=== PATIENT | female | born 1940 | race Caucasian/White ===

== ENCOUNTER → 2018-04-10 | Outpatient (CLI) | payer MEDICARE, BC ==
[~2018-04-10] MED LIST: DOBUTamine DRIP for NUC MED 500 MG in DEXTROSE/WATER 1 250ML.BAG IV ONE
--- NOTE | 2018-04-11 14:43 | ECHOS ---
STRESS ECHOCARDIOGRAM DATE OF SERVICE: 04/10/2018 INDICATIONS: Abnormal EKG. MEDICATIONS: BASELINE HEART RATE: 87 BASELINE BLOOD PRESSURE: 175/74 MAXIMUM HEART RATE: 135 MAXIMUM BLOOD PRESSURE: 134/49 85% MPHR: 123 100% MPHR: 145 METS: @@ MAXIMUM STAGE REACHED: 2 TOTAL EXERCISE TIME: 5:00 CLINICAL INFORMATION: Baseline rhythm is sinus mechanism, rate of 87, intraventricular conduction delay, poor R wave progression with left axis deviation. Baseline blood pressure 175/74. Patient received an infusion of dobutamine per protocol. Peak rate 135 beats per minute, which is equal to 93% maximum predicted heart rate. Peak blood pressure 134/49 mmHg. Electrocardiographic monitoring revealed no evidence of diagnostic ischemic ST deviation. FINDINGS: Baseline echocardiogram revealed normal wall thickening and motion. At peak exercise, there was normal wall motion augmentation with no hypokinesis or dyskinesis. CONCLUSION: 1. Non-diagnostic electrocardiographic response to dobutamine infusion Secondary to baseline EKG abnormality. 2. Normal stress echocardiogram with no evidence of stress-induced ischemia. MMODL / IJN: [id number] /
== END | disposition home or self-care (01) ==
LOC: RADNMMAIN 09:49
PROVIDERS: ATTEND Internal Medicine
DX: R94.31 Abnormal electrocardiogram [ECG] [EKG] (principal)
CPT/HCPCS: 93351; J1250

== ENCOUNTER → 2018-05-14 | Outpatient (CLI) | payer MEDICARE, BC ==
--- NOTE | 2018-05-14 12:59 | MM ---
Reason for exam: screening (asymptomatic). Last mammogram was performed 7 years and 1 month ago. History: Patient is postmenopausal. Family history of breast cancer in paternal grandmother and breast cancer in paternal aunt. Benign excisional biopsy of the right breast, 2003. Took estrogen for 6 months beginning at age 54. Physical Findings: A clinical breast exam by your physician is recommended on an annual basis and results should be correlated with mammographic findings. MG 3D Screening Mammo W/Cad Bilateral CC and MLO view(s) were taken. Prior study comparison: April 03, 2011, bilateral digital screening mammo w/CAD. March 10, 2010, bilateral diagnostic digital mammog. The breast tissue is heterogeneously dense. This may lower the sensitivity of mammography. Finding: There are typically benign vascular, round, skin calcifications in both breasts. There is no discrete abnormality. ASSESSMENT: Benign, BI-RAD 2 RECOMMENDATION: Routine screening mammogram of both breasts in 1 year.
--- NOTE | 2018-05-14 14:06 | BD ---
EXAMINATION TYPE: Axial Bone Density DATE OF EXAM: 05/14/2018 COMPARISON: NONE CLINICAL HISTORY: Height: 60.5 IN Weight: 136 LBS RISK FACTORS HISTORY OF: History of Wrist Fracture: YES RT WRIST When: AGE 30 Surgery to Spine: YES L-SPINE FUSION When: 2002 Active: YES Diet low in dairy products/other sources of calcium: YES Postmenopausal woman: AGE 52 MEDICATIONS: Thyroid Medications: YES Which medication: Levothyroxine How Lon + YEARS Additional Medications: LEVOTHYROXINE, JANUMET, AMLODIPINE, PANTOPRAZOLE SODIUM, CARVEDILOL, CLOPIDOG REL,AMITRIPTYLINE,VALSARTAN, ASPIRIN, PRESERVISION, EXAM MEASUREMENTS: Bone mineral densitometry was performed using the [employer] System. PT HAD L SPINE FUSION 2002 Bone mineral density about the R hip (g/cm2): 0.679 Bone mineral density about the L hip (g/cm2): 0.691 T Score values are as follows: -----R Neck: -2.6 -----L Neck: -2.5 -----R Total: -2.4 -----L Total: -2.4 Bone mineral density has: Decreased -3.5% since study of: 01/15/2009 Bone mineral density about the L Wrist (g/cm2): 0.406 T Score values are as follows: -----Dist. R+U: -4.6 -----Prox. R+U: -3.1 -----Radius total: -4.4 Bone mineral density BASELINE IMPRESSION: Osteoporosis (T Score less than -2.5). There is increased fracture risk and therapy is usually indicated based on age. Re-Screen 1-2 years. NOTE: T-SCORE=SD OF THE YOUNG ADULT MEAN.
== END | disposition home or self-care (01) ==
LOC: RADMAMWWP 08:05
PROVIDERS: ATTEND Internal Medicine Geriatric Medicine
DX: Z12.31 Encounter for screening mammogram for malignant neoplasm of breast (principal); M81.0 Age-related osteoporosis without current pathological fracture
CPT/HCPCS: 77063; 77067; 77080

== ENCOUNTER 2018-12-16 12:14 | Emergency (ER) | payer MEDICARE, BC ==
[2018-12-16] MEDS ORDERED: RX INFO: IV CONTRAST WAS GIVEN 1 EACH MISC MISCELLANE PRN (12:30)
[2018-12-16 12:39] LABS: Basophils % (A) 0 %; Eosinophils # (A) 0.4 k/uL (0-0.7); Eosinophils % (A) 5 %; HCT 33.2 % (34.0-46.0); HGB 10.9 gm/dL (11.4-16.0); Lymphocytes # (A) 2.8 k/uL (1.0-4.8); Lymphocytes % (A) 35 %; MCH 26.8 pg (25.0-35.0); MCV 81.2 fL (80.0-100.0); Mean Platelet Volume 8.4; Monocytes # (A) 0.3 k/uL (0-1.0); Monocytes % (A) 3 %; Neutrophils # (A) 4.3 k/uL (1.3-7.7); Neutrophils % (A) 53 %; Platelet Count 173 k/uL (150-450); RBC 4.09 m/uL (3.80-5.40); RDW 14.7 % (11.5-15.5); WBC 8.1 k/uL (3.8-10.6)
[2018-12-16] MEDS ORDERED: ETOMIDATE 2 MG/ML 10 ML VIAL IVP STA (12:43)
[2018-12-16] MEDS ORDERED: ROCURONIUM BROMIDE 10 MG/ML 10 ML VIAL IV STA (12:43)
[2018-12-16 12:55] LABS: Albumin 4.5 g/dL (3.5-5.0); Calcium 9.5 mg/dL (8.4-10.2); Potassium 4.5 mmol/L (3.5-5.1); Total Bilirubin 0.7 mg/dL (0.2-1.3); Total Protein 6.7 g/dL (6.3-8.2)
[2018-12-16 12:58] LABS: Glucose,Whole Blood 224 mg/dL (75-99)
[2018-12-16 12:59] LABS: Prothrombin Time 10.5 sec (9.0-12.0)
--- NOTE | 2018-12-16 13:04 | ED ---
Altered Mental Status HPI - General Chief Complaint: Altered Mental Status Stated Complaint: Altered Mental Status Time Seen by Provider: 12/16/18 12:26 Source: family, EMS Mode of arrival: EMS Limitations: altered mental status - History of Present Illness Initial Comments: The patient is a 78-year-old female who presents to the emergency room via EMS for altered mental status. EMS and the daughter provide the history. The patient had an upper endoscopy today. The daughter states that the exam went well and the patient fully recovered after anesthesia. They were out eating lunch. Patient had sudden onset of headache, neck pain and upper back pain at 1145. Patient stated that she wanted to go home so the daughter assisted her out of the restaurant. The patient could not ambulate on her own and then became unresponsive. EMS was called. Patient arrived with snoring respirations. She had 3 episodes of vomiting. The patient would withdraw from pain in her lower extremities however would not withdrawal with her upper extremities. Pupils are unequal. Patient does not follow any commands. Remainder of the HPI is limited due to patient's unresponsive state. - Related Data Allergies Allergy/AdvReac Type Severity Reaction Status Date / Time No Known Allergies Allergy Verified 12/16/18 12:32 Review of Systems ROS Statement: Those systems with pertinent positive or pertinent negative responses have been documented in the HPI. ROS Other: All systems not noted in ROS Statement are negative. Limitations: ROS unobtainable due to patients medical condition Neurological: Reports: headache, confusion, other (Neck pain, inability to ambulate, speech difficulties) Past Medical History Past Medical History: Unable to Obtain, CVA/TIA, Diabetes Mellitus, Hypertension Past Surgical History: Unable to Obtain, Back Surgery Past Psychological History: No Psychological Hx Reported Smoking Status: Unknown if ever smoked General Exam Limitations: altered mental status General appearance: obtunded Head exam: Present: atraumatic, normocephalic Eye exam: Present: other (The left pupil is 3 mm and minimally reactive. The right pupil is 4 mm and minimally reactive) Pupils: Present: unequal ENT exam: Present: normal exam, mucous membranes moist, other (There is vomitus in the posterior pharynx) Neck exam: Present: normal inspection Respiratory exam: Present: other (The patient has snoring, agonal respirations) Cardiovascular Exam: Present: regular rate, normal heart sounds GI/Abdominal exam: Present: soft. Absent: distended, tenderness, guarding, rebound, rigid Back exam: Present: normal inspection Neurological exam: Present: other (The patient is obtunded. She does not follow any commands. She will withdraw from pain in her bilateral lower extremities. Does not withdrawal to pain in her upper extremities. No spontaneous movements.) Skin exam: Present: warm, dry Course Vital Signs 12/16/18 12/16/18 12/16/18 12:23 12:25 12:40 Temperature 98 F Pulse Rate 112 H 110 H 65 Respiratory 10 L 8 L 15 Rate Blood Pressure 116/82 115/80 110/70 O2 Sat by Pulse 95 95 99 Oximetry 12/16/18 12/16/18 12/16/18 12:55 13:30 13:37 Temperature 97.9 F Pulse Rate 71 62 66 Respiratory 15 14 16 Rate Blood Pressure 120/78 104/62 125/85 O2 Sat by Pulse 99 100 100 Oximetry Procedures - Intubation Sedative: Etomidate Mg Given: 20 Paralytic: Rocuronium Mg Given: 100 Laryngoscope: other ([place] scope) Size: 3 ET Tube Size: 8 ET Tube Uncuffed: No Tube Secured Depth (cm): 23 Tube Secured Location: lips Tube Placement Confirmation: visualized tube passing through cords, equal breath sounds bilaterally, no breath sounds over epigastrium, confirmation by capnometry Patient Tolerated Procedure: no complications Intubation Complications: none Medical Decision Making - Medical Decision Making The patient was immediately brought into trauma bay 1. Initial assessment demonstrates agonal respirations. The patient was not protecting her airway and therefore decision was made to intubate the patient. She was intubated using the glide scope and an 8 cm ET tube. Tube was visualized going through the cords. It was secured at 23 cm at the lips. The patient had bilateral breath sounds auscultated and there was color change on the capnography. The patient's blood pressure was normotensive however due to reported hypertension reported by EMS, sudden onset of headache and altered mental status, I was concerned for a subarachnoid hemorrhage. Patient was immediately sent for a CT brain/CT angio of her head and a code stroke was activated at 1234. Review of the imaging reveals large intraventricular blood with obstructive hydrocephalus. Dr. Whitten did return my call at 1:10 PM. He recommended a Keppra, platelets, blood pressure control less than 160 systolic [facility] I called and discussed the case with Dr. Aly at 1:18 who did accept transfer. EMS was called and COBRA forms were initiated. 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 The patient did receive Keppra 1 gram. Her blood pressure remained stable around 120 systolic therefore cardene was not initiated. The pharmacy is unable to provide platelets for an additional 3 hours. The patient will be sent prior to and sirens to [facility]. I did call Dr. Aly and update her that the platelets were not transfused. [facility] - Lab Data Result diagrams: 12/16/18 12:25 12/16/18 12:25 Lab Results 12/16/18 12/16/18 12/16/18 Range/Units 12:25 12:25 12:25 WBC 8.1 (3.8-10.6) k/uL RBC 4.09 (3.80-5.40) m/uL Hgb 10.9 L (11.4-16.0) gm/dL Hct 33.2 L (34.0-46.0) % MCV 81.2 (80.0-100.0) fL MCH 26.8 (25.0-35.0) pg MCHC 33.0 (31.0-37.0) g/dL RDW 14.7 (11.5-15.5) % Plt Count 173 (150-450) k/uL Neutrophils % 53 % Lymphocytes % 35 % Monocytes % 3 % Eosinophils % 5 % Basophils % 0 % Neutrophils # 4.3 (1.3-7.7) k/uL Lymphocytes # 2.8 (1.0-4.8) k/uL Monocytes # 0.3 (0-1.0) k/uL Eosinophils # 0.4 (0-0.7) k/uL Basophils # 0.0 (0-0.2) k/uL PT (9.0-12.0) sec INR (<1.2) APTT (22.0-30.0) sec Sample Site ABG pH (7.35-7.45) ABG pCO2 (35-45) mmHg ABG pO2 (83-108) mmHg ABG HCO3 (21-25) mmol/L ABG Total CO2 (19-24) mmol/L ABG O2 Saturation (94-97) % ABG Base Excess mmol/L Lazaro Test FiO2 % Sodium 136 L (137-145) mmol/L Potassium 4.5 (3.5-5.1) mmol/L Chloride 97 L (98-107) mmol/L Carbon Dioxide 23 (22-30) mmol/L Anion Gap 16 mmol/L BUN 17 (7-17) mg/dL Creatinine 0.83 (0.52-1.04) mg/dL Est GFR (CKD-EPI)AfAm 80 (>60 ml/min/1.73 sqM) Est GFR (CKD-EPI)NonAf 69 (>60 ml/min/1.73 sqM) Glucose 231 H (74-99) mg/dL POC Glucose (mg/dL) (75-99) mg/dL POC Glu Breaker Layer ID Calcium 9.5 (8.4-10.2) mg/dL Total Bilirubin 0.7 (0.2-1.3) mg/dL AST 27 (14-36) U/L ALT 21 (9-52) U/L Alkaline Phosphatase 53 (38-126) U/L Ammonia <9 (<30) umol/L Troponin I (0.000-0.034) ng/mL Total Protein 6.7 (6.3-8.2) g/dL Albumin 4.5 (3.5-5.0) g/dL Blood Type Blood Type Recheck Antibody Screen Spec Expiration Date 12/16/18 12/16/18 12/16/18 Range/Units 12:25 12:25 12:25 WBC (3.8-10.6) k/uL RBC (3.80-5.40) m/uL Hgb (11.4-16.0) gm/dL Hct (34.0-46.0) % MCV (80.0-100.0) fL MCH (25.0-35.0) pg MCHC (31.0-37.0) g/dL RDW (11.5-15.5) % Plt Count (150-450) k/uL Neutrophils % % Lymphocytes % % Monocytes % % Eosinophils % % Basophils % % Neutrophils # (1.3-7.7) k/uL Lymphocytes # (1.0-4.8) k/uL Monocytes # (0-1.0) k/uL Eosinophils # (0-0.7) k/uL Basophils # (0-0.2) k/uL PT 10.5 (9.0-12.0) sec INR 1.0 (<1.2) APTT 21.6 L (22.0-30.0) sec Sample Site ABG pH (7.35-7.45) ABG pCO2 (35-45) mmHg ABG pO2 (83-108) mmHg ABG HCO3 (21-25) mmol/L ABG Total CO2 (19-24) mmol/L ABG O2 Saturation (94-97) % ABG Base Excess mmol/L Lazaro Test FiO2 % Sodium (137-145) mmol/L Potassium (3.5-5.1) mmol/L Chloride (98-107) mmol/L Carbon Dioxide (22-30) mmol/L Anion Gap mmol/L BUN (7-17) mg/dL Creatinine (0.52-1.04) mg/dL Est GFR (CKD-EPI)AfAm (>60 ml/min/1.73 sqM) Est GFR (CKD-EPI)NonAf (>60 ml/min/1.73 sqM) Glucose (74-99) mg/dL POC Glucose (mg/dL) (75-99) mg/dL POC Glu Breaker Layer ID Calcium (8.4-10.2) mg/dL Total Bilirubin (0.2-1.3) mg/dL AST (14-36) U/L ALT (9-52) U/L Alkaline Phosphatase (38-126) U/L Ammonia (<30) umol/L Troponin I <0.012 (0.000-0.034) ng/mL Total Protein (6.3-8.2) g/dL Albumin (3.5-5.0) g/dL Blood Type O Positive Blood Type Recheck CABO Indicated Antibody Screen NEGATIVE Spec Expiration Date 12/16/2018 - 132412/16/18 12/16/18 Range/Units 12:57 13:15 WBC (3.8-10.6) k/uL RBC (3.80-5.40) m/uL Hgb (11.4-16.0) gm/dL Hct (34.0-46.0) % MCV (80.0-100.0) fL MCH (25.0-35.0) pg MCHC (31.0-37.0) g/dL RDW (11.5-15.5) % Plt Count (150-450) k/uL Neutrophils % % Lymphocytes % % Monocytes % % Eosinophils % % Basophils % % Neutrophils # (1.3-7.7) k/uL Lymphocytes # (1.0-4.8) k/uL Monocytes # (0-1.0) k/uL Eosinophils # (0-0.7) k/uL Basophils # (0-0.2) k/uL PT (9.0-12.0) sec INR (<1.2) APTT (22.0-30.0) sec Sample Site rbrac ABG pH 7.38 (7.35-7.45) ABG pCO2 44 (35-45) mmHg ABG pO2 48 L* (83-108) mmHg ABG HCO3 26 H (21-25) mmol/L ABG Total CO2 27 H (19-24) mmol/L ABG O2 Saturation 83.0 L (94-97) % ABG Base Excess 0.4 mmol/L Lazaro Test Yes FiO2 100 % Sodium (137-145) mmol/L Potassium (3.5-5.1) mmol/L Chloride (98-107) mmol/L Carbon Dioxide (22-30) mmol/L Anion Gap mmol/L BUN (7-17) mg/dL Creatinine (0.52-1.04) mg/dL Est GFR (CKD-EPI)AfAm (>60 ml/min/1.73 sqM) Est GFR (CKD-EPI)NonAf (>60 ml/min/1.73 sqM) Glucose (74-99) mg/dL POC Glucose (mg/dL) 224 H (75-99) mg/dL POC Glu Breaker Layer ID [place]elles Calcium (8.4-10.2) mg/dL Total Bilirubin (0.2-1.3) mg/dL AST (14-36) U/L ALT (9-52) U/L Alkaline Phosphatase (38-126) U/L Ammonia (<30) umol/L Troponin I (0.000-0.034) ng/mL Total Protein (6.3-8.2) g/dL Albumin (3.5-5.0) g/dL Blood Type Blood Type Recheck Antibody Screen Spec Expiration Date - EKG Data EKG Comments: EKG demonstrates a sinus tachycardia with ventricular rate of 103. MO interval 198. QRS 104. QTC 482. No acute ST segment elevations. There is mild depression in leads 1, aVL, V5 through V6. - Radiology Data Radiology results: report reviewed, image reviewed Critical Care Time Critical Care Time: Yes Total Critical Care Time: 65 Disposition Clinical Impression: Altered mental status, Subarachnoid hemorrhage, Cerebral aneurysm Disposition: OTHER INSTITUTION NOT DEFINED Condition: Critical Is patient prescribed a controlled substance at d/c from ED?: No Referrals: Tory Forman DO [Primary Care Provider] - 1-2 days - Out of Hospital Transfer - Req. Specs Out of Hospital Transfer - Requested Specifics: Intensive Care Unit
[2018-12-16] MEDS ORDERED: levETIRAcetam IV 1,000 MG in SALINE 1 100ML.BAG IVPB STA (13:14)
[2018-12-16] MEDS ORDERED: niCARdipine 20 MG in SODIUM CHLORIDE 0.9% 192 ML IV SCH (13:15)
--- NOTE | 2018-12-16 13:16 | CT ---
EXAMINATION TYPE: CT brain wo con DATE OF EXAM: 12/16/2018 COMPARISON: None HISTORY: 78-year-old female unresponsive, severe headache, Altered mentaL status TECHNIQUE: Examination was done in axial plane without intravenous contrast. Coronal and sagittal r econstructions performed. CT DLP: 1004.8 mGycm Automated exposure control for dose reduction was used. FINDINGS: Large amount of acute intracranial hemorrhage located throughout the ventricular system filling the b ilateral lateral ventricles, third ventricle, coursing along the cerebral aqueduct in filling the fou rth ventricle as well and within the subarachnoid space to the visualized upper cervical region. There is associated mild hydrocephalus. Moderate confluent white matter hypodensities in both cerebral hemispheres. No midline shift or dagmar herniation is seen at this time. Leftward nasal septal deviation. Partial opacification of the bilateral mastoid air cells. Orbits and globes are intact. IMPRESSION: 1. Large amount of acute intraventricular hemorrhage seen throughout with early obstructive hydroceph alus. No dagmar herniation or midline shift at this time. 2. Moderate confluent changes of chronic small vessel ischemic disease. 3. Some trapped fluid in the bilateral mastoid air cells. Correlate for any mastoid pain to exclude m astoiditis. Critical findings called to Dr. Almodovar in the ER at 1:13 PM.
[2018-12-16 13:17] LABS: Partial Thromboplastin Time 21.6 sec (22.0-30.0)
[2018-12-16 13:27] LABS: ABG Base Excess 0.4 mmol/L; ABG HCO3 26 mmol/L (21-25); ABG PCO2 44 mmHg (35-45); ABG PH 7.38 (7.35-7.45); ABG TCO2 27 mmol/L (19-24); Allen Test Performed? Yes
--- NOTE | 2018-12-16 13:31 | CT ---
EXAMINATION TYPE: CT angio head neck DATE OF EXAM: 12/16/2018 COMPARISON: Noncontrast head same day. Also, old CT chest from 09/25/2011. HISTORY: 78-year-old female with headache now unresponsive TECHNIQUE: Contiguous axial scanning of the head and neck performed with IV Contrast, patient injecte d with 150 mL of Isovue 370. Coronal/sagittal MIP reconstructions performed. Reconstructions generate d on a dedicated independent workstation. CT DLP: mGycm Automated exposure control for dose reduction was used. FINDINGS: Neck: Patient is intubated. Moderate emphysema. Spiculated density right upper lobe measures 1.0 cm versus 7 mm on 2012. Moderate atherosclerotic calcifications aortic arch. There appears to be variant direct takeoff of th e left vertebral artery directly from the aortic arch distal to the left subclavian artery. There is the left subclavian artery at its origin with reconstitution just prior to the axillary santi ry. Scattered mild atherosclerotic calcifications within the left common carotid artery with postsurgical changes at the left carotid bifurcation. The left ICA remains patent. There is severe atherosclerotic narrowing involving the brachiocephalic artery. Right common carotid artery is patent. There is occlusion of the right ICA. Also, suspect chronic occlusion of the right vertebral artery. Head: The V4 segment left vertebral artery becomes diminutive. Basilar artery is also relatively diminutive . Distal V4 segment right vertebral artery shows some reconstitution probably from retrograde flow. ICA occlusion on the right. There is reconstitution of the right MCA and right RENATE circulations in part due to prominent posterio r communicating arteries. A 5 segment RENATE shows a 5 mm nodular focus of enhancement along the body of the corpus callosum, refe r to sagittal series 507 image 14. This may be the source of the intraventricular hemorrhage. No othe r definite aneurysmal changes identified. IMPRESSION: NECK: 1. 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 2. 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 3. Variant anatomy with direct takeoff of the left vertebral artery from the aortic arch distal to th e left subclavian artery takeoff. 4. 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 HEAD: 1. Right ICA occlusion with reconstitution of the right RENATE and MCA circulation likely from prominent communicating arteries. 2. A 5 mm nodular focus of enhancement just inferior to A5 segment anterior cerebral artery (sagittal series 507 image 14). Findings suggest aneurysm and probable origin of intraventricular hemorrhage. 3. Diminutive posterior circulation, possible chronic vertebrobasilar insufficiency. ADDITIONAL: 1 cm spiculated nodule right upper lobe versus 7 mm in 2012. Appropriate follow-up to exc lude neoplasm. Critical findings called to Dr. Almodovar in the ER at 1:13 PM.
[2018-12-16 13:38] VITALS: BP 125/85; PULSE 66; RESP 16; TEMP 97.9
--- NOTE | 2018-12-16 14:05 | XR ---
EXAMINATION TYPE: XR chest 1V portable DATE OF EXAM: 12/16/2018 COMPARISON: NONE HISTORY: Altered mental status TECHNIQUE: Single frontal view of the chest is obtained. FINDINGS: There is a layering small left pleural effusion and left-sided basilar opacity. There is p ulmonary hyperinflation indicative of underlying COPD with biapical lucency. There is no sizable pneu mothorax appreciated. Enteric tube has been inserted with its fenestrated portion beyond the gastroes ophageal junction, appropriately placed. Numerous surgical clips are seen within the soft tissues of the neck. Diffuse osseous demineralization is present. Endotracheal tube terminates with its distal t ip approximately 9 mm from the inna and should be retracted at least 1 cm for optimal placement. IMPRESSION: 1. Low-lying endotracheal tube that should be retracted at least 1 cm for optimal placement. 2. Small layering left pleural effusion and left basilar airspace disease that may represent atelecta sis or pneumonia. 3. Underlying COPD. 4. Appropriately placed enteric tube.
[2018-12-18 08:25] LABS: ABG PO2 48 mmHg (83-108)
== END 2018-12-16 13:45 | disposition other institution (70) ==
LOC: EC 12:14
DX: I60.9 Nontraumatic subarachnoid hemorrhage, unspecified (principal); I67.1 Cerebral aneurysm, nonruptured; G91.1 Obstructive hydrocephalus; M54.6 Pain in thoracic spine; Z86.73 Personal history of transient ischemic attack (TIA), and cerebral infarction without residual deficits; Z98.890 Other specified postprocedural states
CPT/HCPCS: 99291; 31500; 96374; 36415; 36600; 93005; 86900; 86901; 80053; 82140; 82805; 84484; 85025; 85610; 85730; 86850; 71045; 70496; 70450; 70498; J1953; Q9967

== ENCOUNTER 2018-12-18 08:56 | Inpatient (IN) | payer MEDICARE, BC ==
[2018-12-18] MEDS ORDERED: MORPHINE SULFATE 2 MG/ML SYRINGE IV PRN (14:59)
[2018-12-18] MEDS ORDERED: ACETAMINOPHEN SUPPOSITORY 650 MG SUPP RECTAL PRN (14:59)
[2018-12-18] MEDS ORDERED: LORazepam 2 MG/ML INJ IV PRN (14:59)
[2018-12-18] MEDS ORDERED: ATROPINE OPHTH SOLN 1% 5ML BTL SUBLINGUAL PRN (14:59)
[2018-12-18 20:48] VITALS: BP 166/48; PULSE 82; RESP 8
[2018-12-18 21:25] VITALS: BMI 34.8
[2018-12-18] MEDS ORDERED: SCOPOLAMINE 1.5MG/72HR PATCH TRANSDERM SCH (22:00)
== END 2018-12-18 22:03 | disposition still patient (30) | DRG 951 ==
LOC: 3NMEDONC 20:50
PROVIDERS: ADMIT Internal Medicine; ATTEND Internal Medicine
DX: Z51.5 Encounter for palliative care (principal)

== ENCOUNTER 2018-12-18 21:33 | Inpatient (IN) | payer MEDICAID | END 2018-12-19 00:26 | disposition E | DRG 951 | LOC: 3NMEDONC 21:33 | PROVIDERS: ADMIT Internal Medicine; ATTEND Internal Medicine | DX: Z51.5 Encounter for palliative care (principal); I62.9 Nontraumatic intracranial hemorrhage, unspecified; I10 Essential (primary) hypertension; E11.8 Type 2 diabetes mellitus with unspecified complications; Z86.73 Personal history of transient ischemic attack (TIA), and cerebral infarction without residual deficits ==